=== PATIENT | male | born 1965 | race Caucasian/White ===

== ENCOUNTER 2019-07-10 18:44 | Emergency (ER) | payer OTHER ==
[~2019-07-10] VITALS: Ht 162.6 cm; Wt 71.1 kg
[~2019-07-10 18:44] MED LIST: HYDR-4011 PO; METH750T93 PO; ONDA4TAB14 PO
[2019-07-10 18:47] VITALS: Ht 162.6 cm; Wt 71.1 kg
[2019-07-10] MEDS ORDERED: ONDANSETRON (ODT) 4 MG TAB ODT STA (20:38)
[2019-07-10] MEDS ORDERED: HYDROCODONE/APAP (5/325) TAB PO ONE (21:00)
[2019-07-10] MEDS ORDERED: METHOCARBAMOL 750 MG TAB PO ONE (21:00)
[2019-07-10] MEDS ORDERED: METHOCARBAMOL 500 MG TAB PO ONE (21:00)
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
[2019-07-10 21:47] VITALS: BP 135/69; PULSE 57; RESP 18
== END 2019-07-10 21:48 | disposition home or self-care (01) ==
LOC: FTE 18:44
DX: M54.2 Cervicalgia (principal); M25.551 Pain in right hip; R51 Headache; V49.40XA Driver injured in collision with unspecified motor vehicles in traffic accident, initial encounter
CPT/HCPCS: Z7502; Z7610; 99283